=== PATIENT | male | born 1960 | race African-American/Black ===

== ENCOUNTER 2022-10-01 10:01 | Inpatient (IN) | payer OTHER ==
[2022-10-01 11:13] VITALS: BMI 19.8
[2022-10-01] MEDS ORDERED: P-EPHED 60MG/TRIPROLIDI 2.5MG TABLET PO PRN (11:48)
[2022-10-01] MEDS ORDERED: guaiFENesin 600 MG TABLET.ER (FP) PO PRN (11:48)
[2022-10-01] MEDS ORDERED: MAG HYDROX/AL HYDROX/SIMETH 30 ML UNIT-DOSE CUP PO PRN (11:48)
[2022-10-01] MEDS ORDERED: AMMONIUM LACTATE 12% LOTION 225 GM BOTTLE TP PRN (11:48)
[2022-10-01] MEDS ORDERED: MAGNESIUM HYDROX 2400MG/30ML ORAL SUSPENSION 30 ML CUP PO PRN (11:48)
[2022-10-01] MEDS ORDERED: BENZONATATE 200 MG CAPSULE PO PRN (11:48)
[2022-10-01] MEDS ORDERED: POLYETHYLENE GLYCOL (HEALTHYLAX) 3350 17 GM PACKET PO PRN (11:48)
[2022-10-01] MEDS ORDERED: COLLOIDAL OATMEAL 1 BAR EACH TP PRN (11:48)
[2022-10-01] MEDS ORDERED: LOPERAMIDE HCL 2 MG CAPSULE PO PRN (11:48)
[2022-10-01] MEDS ORDERED: NICOTINE 10 MG CARTRIDGE (INHALER) IH PRN (11:48)
[2022-10-01] MEDS ORDERED: BENZOCAINE/MENTHOL (CHLORASEPTIC ) LOZENGE MM PRN (11:48)
[2022-10-01] MEDS ORDERED: TUBERCULIN PPD 5 TU/0.1ML SYRINGE (IN PATIENT USE ONLY) ID ONE (13:15)
[2022-10-01] MEDS ORDERED: CLOPIDOGREL BISULFATE 75 MG TABLET (FP) PO SCH (14:00)
[2022-10-01] MEDS: ASPIRIN 81 MG CHEWABLE TABLETS PO SCH (14:33)
[2022-10-01] MEDS: amLODIPine BESYLATE 10 MG TABLET (FP) PO SCH (14:33)
[2022-10-01] MEDS: BACITRACIN 0.9 GM PACKET TP SCH ×2 (14:33→21:51)
[2022-10-01] MEDS: NICOTINE 14 MG/24 HOURS TOPICAL PATCH TD SCH (14:41)
[2022-10-01] MEDS: CLOPIDOGREL BISULFATE 75 MG TABLET (FP) PO SCH (16:00)
[2022-10-01 17:08] LABS: CHLORIDE 100 mmol/L (98-107); HEMATOCRIT 50.8 % (35.4-49); HEMOGLOBIN 16.4 GM/dL (11.7-16.9); MCH 25.7 pg (25.7-33.7); MCHC 32.2 g/dl (32.0-35.9); MEAN CELL VOLUME 79.9 fl (80-96); MEAN PLT VOLUME 9.8 fl (7.5-11.1); PLATELET COUNT 418 10^3/uL (134-434); POTASSIUM 5.2 mmol/L (3.5-5.1); RBC 6.37 M/mm3 (4.00-5.60); RDW 14.7 % (11.9-15.9); SODIUM 138 mmol/L (136-145); WHITE BLOOD COUNT 7.8 K/mm3 (4.0-10.0)
[2022-10-01 17:11] LABS: ALBUMIN 3.7 g/dl (3.4-5.0); CALCIUM 9.9 mg/dL (8.5-10.1)
[2022-10-01 17:12] LABS: ANION GAP 9 MMOL/L (8-16); BLOOD UREA NITROGEN 24.3 mg/dL (7-18); CO2 29 mmol/L (21-32)
[2022-10-01 17:15] LABS: CREATININE 1.3 mg/dL (0.55-1.3); SGOT/AST 13 U/L (15-37); SGPT/ALT 17 U/L (13-61)
[2022-10-01 17:16] LABS: BILIRUBIN,TOTAL 0.4 mg/dL (0.2-1); TOT PROT 7.5 g/dl (6.4-8.2)
[2022-10-01 17:17] LABS: ALK PHOS 99 U/L (45-117)
[2022-10-01 17:20] LABS: GLUCOSE,RANDOM 535 mg/dL (74-106)
[2022-10-01] MEDS: metFORMIN HCL 500 MG TABLET (FP) PO SCH (17:41)
[2022-10-01] MEDS: INSULIN SLIDING SCALE (NOVOLOG) 1 VIAL SQ SCH ×2 (17:41→21:51)
[2022-10-01] MEDS: GLIMEPIRIDE 2 MG TABLET PO SCH (17:42)
[2022-10-01 18:37] LABS: SYPHILIS W/ RPR CONF REACTIVE (NONREACTIVE)
[2022-10-01] MEDS: THIAMINE HCL 100 MG TABLET (FP) PO SCH (21:51)
[2022-10-01] MEDS: MELATONIN 5 MG TABLETS PO SCH (21:51)
[2022-10-02] MEDS: GLIMEPIRIDE 2 MG TABLET PO SCH ×2 (06:29→22:03)
[2022-10-02] MEDS: INSULIN SLIDING SCALE (NOVOLOG) 1 VIAL SQ SCH ×4 (06:29→22:06)
[2022-10-02] MEDS: metFORMIN HCL 500 MG TABLET (FP) PO SCH ×2 (06:29→16:42)
[2022-10-02] MEDS ORDERED: INSULIN (NOVOLOG) ASPART 100 UNITS/ML 10ML VIAL ONE ×4 (06:30→22:09)
[2022-10-02] MEDS: ASPIRIN 81 MG CHEWABLE TABLETS PO SCH (09:27)
[2022-10-02] MEDS: BACITRACIN 0.9 GM PACKET TP SCH ×2 (09:27→22:03)
[2022-10-02] MEDS: CLOPIDOGREL BISULFATE 75 MG TABLET (FP) PO SCH (09:27)
[2022-10-02] MEDS: amLODIPine BESYLATE 10 MG TABLET (FP) PO SCH (09:27)
[2022-10-02] MEDS: NICOTINE 14 MG/24 HOURS TOPICAL PATCH TD SCH (09:27)
[2022-10-02] MEDS: PRENATAL VITAMINS W/ FOLIC ACID TABLET (FP) PO SCH (09:28)
[2022-10-02 12:40] LABS: HIV INTERPRETATION NEGATIVE (NEGATIVE)
[2022-10-02 18:23] LABS: PH,URINE 5.5 (5.0-8.0); URINE APPEARANCE CLEAR; URINE BILIRUBIN NEGATIVE (NEGATIVE); URINE COLOR YELLOW; URINE GLUCOSE (UA) 3+ (NEGATIVE); URINE KETONE NEGATIVE (NEGATIVE); URINE LEUK ESTERASE NEGATIVE (NEGATIVE); URINE NITRITE NEGATIVE (NEGATIVE); URINE PROTEIN NEGATIVE (NEGATIVE); URINE UROBILINOGEN 0.2 mg/dL (0.2-1.0)
[2022-10-02] MEDS: MELATONIN 5 MG TABLETS PO SCH (22:03)
[2022-10-02] MEDS: THIAMINE HCL 100 MG TABLET (FP) PO SCH (22:03)
[2022-10-03] MEDS: GLIMEPIRIDE 2 MG TABLET PO SCH ×2 (06:31→16:50)
[2022-10-03] MEDS: metFORMIN HCL 500 MG TABLET (FP) PO SCH ×2 (06:31→16:50)
[2022-10-03] MEDS: INSULIN SLIDING SCALE (NOVOLOG) 1 VIAL SQ SCH ×4 (08:29→21:52)
[2022-10-03] MEDS ORDERED: INSULIN (NOVOLOG) ASPART 100 UNITS/ML 10ML VIAL ONE ×2 (08:38→11:49)
[2022-10-03] MEDS: CLOPIDOGREL BISULFATE 75 MG TABLET (FP) PO SCH (09:32)
[2022-10-03] MEDS: ASPIRIN 81 MG CHEWABLE TABLETS PO SCH (09:32)
[2022-10-03] MEDS: NICOTINE 14 MG/24 HOURS TOPICAL PATCH TD SCH (09:32)
[2022-10-03] MEDS: BACITRACIN 0.9 GM PACKET TP SCH ×2 (09:32→21:51)
[2022-10-03] MEDS: PRENATAL VITAMINS W/ FOLIC ACID TABLET (FP) PO SCH (09:33)
[2022-10-03] MEDS: amLODIPine BESYLATE 10 MG TABLET (FP) PO SCH (09:33)
[2022-10-03] MEDS: THIAMINE HCL 100 MG TABLET (FP) PO SCH (21:51)
[2022-10-03] MEDS: MELATONIN 5 MG TABLETS PO SCH (21:52)
[2022-10-04] MEDS: metFORMIN HCL 500 MG TABLET (FP) PO SCH ×2 (06:35→16:46)
[2022-10-04] MEDS: GLIMEPIRIDE 2 MG TABLET PO SCH ×2 (06:35→16:47)
[2022-10-04] MEDS: INSULIN SLIDING SCALE (NOVOLOG) 1 VIAL SQ SCH ×4 (07:48→22:04)
[2022-10-04] MEDS ORDERED: INSULIN (NOVOLOG) ASPART 100 UNITS/ML 10ML VIAL ONE ×3 (07:52→16:31)
[2022-10-04] MEDS: NICOTINE 14 MG/24 HOURS TOPICAL PATCH TD SCH (09:46)
[2022-10-04] MEDS: CLOPIDOGREL BISULFATE 75 MG TABLET (FP) PO SCH (09:46)
[2022-10-04] MEDS: PRENATAL VITAMINS W/ FOLIC ACID TABLET (FP) PO SCH (09:46)
[2022-10-04] MEDS: BACITRACIN 0.9 GM PACKET TP SCH ×2 (09:46→22:03)
[2022-10-04] MEDS: ASPIRIN 81 MG CHEWABLE TABLETS PO SCH (09:46)
[2022-10-04] MEDS: amLODIPine BESYLATE 10 MG TABLET (FP) PO SCH (09:46)
[2022-10-04] MEDS: MELATONIN 5 MG TABLETS PO SCH (21:47)
[2022-10-04] MEDS: THIAMINE HCL 100 MG TABLET (FP) PO SCH (22:04)
[2022-10-05] MEDS: INSULIN SLIDING SCALE (NOVOLOG) 1 VIAL SQ SCH ×4 (06:30→21:39)
[2022-10-05] MEDS ORDERED: INSULIN (NOVOLOG) ASPART 100 UNITS/ML 10ML VIAL ONE ×3 (06:31→16:29)
[2022-10-05] MEDS: metFORMIN HCL 500 MG TABLET (FP) PO SCH ×2 (06:32→16:53)
[2022-10-05] MEDS: GLIMEPIRIDE 2 MG TABLET PO SCH ×2 (06:32→16:53)
[2022-10-05] MEDS: PRENATAL VITAMINS W/ FOLIC ACID TABLET (FP) PO SCH (09:47)
[2022-10-05] MEDS: BACITRACIN 0.9 GM PACKET TP SCH ×2 (09:47→21:38)
[2022-10-05] MEDS: CLOPIDOGREL BISULFATE 75 MG TABLET (FP) PO SCH (09:47)
[2022-10-05] MEDS: amLODIPine BESYLATE 10 MG TABLET (FP) PO SCH (09:47)
[2022-10-05] MEDS: ASPIRIN 81 MG CHEWABLE TABLETS PO SCH (09:47)
[2022-10-05] MEDS: NICOTINE 14 MG/24 HOURS TOPICAL PATCH TD SCH (09:48)
[2022-10-05] MEDS: THIAMINE HCL 100 MG TABLET (FP) PO SCH (21:38)
[2022-10-05] MEDS: MELATONIN 5 MG TABLETS PO SCH (21:38)
[2022-10-06] MEDS: INSULIN SLIDING SCALE (NOVOLOG) 1 VIAL SQ SCH ×4 (06:36→21:23)
[2022-10-06] MEDS: metFORMIN HCL 500 MG TABLET (FP) PO SCH ×2 (06:37→16:39)
[2022-10-06] MEDS: GLIMEPIRIDE 2 MG TABLET PO SCH ×2 (06:54→16:39)
[2022-10-06] MEDS ORDERED: INSULIN (NOVOLOG) ASPART 100 UNITS/ML 10ML VIAL ONE ×4 (07:01→21:40)
[2022-10-06] MEDS: BACITRACIN 0.9 GM PACKET TP SCH ×2 (09:49→21:20)
[2022-10-06] MEDS: amLODIPine BESYLATE 10 MG TABLET (FP) PO SCH (09:49)
[2022-10-06] MEDS: NICOTINE 14 MG/24 HOURS TOPICAL PATCH TD SCH (09:49)
[2022-10-06] MEDS: ASPIRIN 81 MG CHEWABLE TABLETS PO SCH (09:49)
[2022-10-06] MEDS: CLOPIDOGREL BISULFATE 75 MG TABLET (FP) PO SCH (09:49)
[2022-10-06] MEDS: PRENATAL VITAMINS W/ FOLIC ACID TABLET (FP) PO SCH (09:49)
[2022-10-06] MEDS: BACLOFEN 10 MG TABLET (FP) PO PRN (16:41)
[2022-10-06] MEDS: MELATONIN 5 MG TABLETS PO SCH (21:20)
[2022-10-06] MEDS: THIAMINE HCL 100 MG TABLET (FP) PO SCH (21:20)
[2022-10-07] MEDS: INSULIN SLIDING SCALE (NOVOLOG) 1 VIAL SQ SCH ×4 (06:27→21:19)
[2022-10-07] MEDS: GLIMEPIRIDE 2 MG TABLET PO SCH ×2 (06:27→16:48)
[2022-10-07] MEDS: metFORMIN HCL 500 MG TABLET (FP) PO SCH ×2 (06:27→16:47)
[2022-10-07] MEDS ORDERED: INSULIN (NOVOLOG) ASPART 100 UNITS/ML 10ML VIAL ONE ×2 (06:32→11:57)
[2022-10-07] MEDS: ASPIRIN 81 MG CHEWABLE TABLETS PO SCH (09:49)
[2022-10-07] MEDS: BACITRACIN 0.9 GM PACKET TP SCH ×2 (09:50→21:17)
[2022-10-07] MEDS: amLODIPine BESYLATE 10 MG TABLET (FP) PO SCH (09:50)
[2022-10-07] MEDS: PRENATAL VITAMINS W/ FOLIC ACID TABLET (FP) PO SCH (09:50)
[2022-10-07] MEDS: NICOTINE 14 MG/24 HOURS TOPICAL PATCH TD SCH (09:50)
[2022-10-07] MEDS: CLOPIDOGREL BISULFATE 75 MG TABLET (FP) PO SCH (09:50)
[2022-10-07] MEDS: BACLOFEN 10 MG TABLET (FP) PO PRN ×2 (09:52→21:17)
[2022-10-07] MEDS: THIAMINE HCL 100 MG TABLET (FP) PO SCH (21:17)
[2022-10-07] MEDS: MELATONIN 5 MG TABLETS PO SCH (21:17)
[2022-10-08] MEDS: GLIMEPIRIDE 2 MG TABLET PO SCH ×2 (06:40→16:52)
[2022-10-08] MEDS: INSULIN SLIDING SCALE (NOVOLOG) 1 VIAL SQ SCH ×4 (06:40→21:35)
[2022-10-08] MEDS: metFORMIN HCL 500 MG TABLET (FP) PO SCH ×2 (06:40→16:52)
[2022-10-08] MEDS ORDERED: INSULIN (NOVOLOG) ASPART 100 UNITS/ML 10ML VIAL ONE ×4 (06:54→21:47)
[2022-10-08] MEDS: BACITRACIN 0.9 GM PACKET TP SCH ×2 (10:10→21:32)
[2022-10-08] MEDS: CLOPIDOGREL BISULFATE 75 MG TABLET (FP) PO SCH (10:10)
[2022-10-08] MEDS: amLODIPine BESYLATE 10 MG TABLET (FP) PO SCH (10:10)
[2022-10-08] MEDS: PRENATAL VITAMINS W/ FOLIC ACID TABLET (FP) PO SCH (10:10)
[2022-10-08] MEDS: NICOTINE 14 MG/24 HOURS TOPICAL PATCH TD SCH (10:10)
[2022-10-08] MEDS: ASPIRIN 81 MG CHEWABLE TABLETS PO SCH (10:10)
[2022-10-08] MEDS: BACLOFEN 10 MG TABLET (FP) PO PRN (21:32)
[2022-10-08] MEDS: MELATONIN 5 MG TABLETS PO SCH (21:32)
[2022-10-08] MEDS: THIAMINE HCL 100 MG TABLET (FP) PO SCH (21:32)
[2022-10-09] MEDS: GLIMEPIRIDE 2 MG TABLET PO SCH ×2 (06:28→16:29)
[2022-10-09] MEDS: metFORMIN HCL 500 MG TABLET (FP) PO SCH (06:28)
[2022-10-09] MEDS: INSULIN SLIDING SCALE (NOVOLOG) 1 VIAL SQ SCH ×4 (07:36→21:30)
[2022-10-09] MEDS ORDERED: INSULIN (NOVOLOG) ASPART 100 UNITS/ML 10ML VIAL ONE ×2 (07:45→19:24)
[2022-10-09] MEDS: NICOTINE 14 MG/24 HOURS TOPICAL PATCH TD SCH (09:54)
[2022-10-09] MEDS: ASPIRIN 81 MG CHEWABLE TABLETS PO SCH (09:54)
[2022-10-09] MEDS: CLOPIDOGREL BISULFATE 75 MG TABLET (FP) PO SCH (09:54)
[2022-10-09] MEDS: BACITRACIN 0.9 GM PACKET TP SCH ×2 (09:54→21:30)
[2022-10-09] MEDS: amLODIPine BESYLATE 10 MG TABLET (FP) PO SCH (09:54)
[2022-10-09] MEDS: PRENATAL VITAMINS W/ FOLIC ACID TABLET (FP) PO SCH (09:54)
[2022-10-09] MEDS: BACLOFEN 10 MG TABLET (FP) PO PRN ×2 (09:56→21:30)
[2022-10-09] MEDS: MELATONIN 5 MG TABLETS PO SCH (21:30)
[2022-10-09] MEDS: THIAMINE HCL 100 MG TABLET (FP) PO SCH (21:30)
[2022-10-10] MEDS: INSULIN SLIDING SCALE (NOVOLOG) 1 VIAL SQ SCH ×4 (06:33→21:24)
[2022-10-10] MEDS ORDERED: INSULIN (NOVOLOG) ASPART 100 UNITS/ML 10ML VIAL ONE ×3 (06:34→23:56)
[2022-10-10] MEDS: GLIMEPIRIDE 2 MG TABLET PO SCH ×2 (06:41→16:51)
[2022-10-10] MEDS: ASPIRIN 81 MG CHEWABLE TABLETS PO SCH (09:32)
[2022-10-10] MEDS: BACITRACIN 0.9 GM PACKET TP SCH ×2 (09:32→21:21)
[2022-10-10] MEDS: NICOTINE 14 MG/24 HOURS TOPICAL PATCH TD SCH (09:32)
[2022-10-10] MEDS: PRENATAL VITAMINS W/ FOLIC ACID TABLET (FP) PO SCH (09:33)
[2022-10-10] MEDS: CLOPIDOGREL BISULFATE 75 MG TABLET (FP) PO SCH (09:33)
[2022-10-10] MEDS: amLODIPine BESYLATE 10 MG TABLET (FP) PO SCH (09:33)
[2022-10-10] MEDS: BACLOFEN 10 MG TABLET (FP) PO PRN (21:21)
[2022-10-10] MEDS: MELATONIN 5 MG TABLETS PO SCH (21:21)
[2022-10-10] MEDS: THIAMINE HCL 100 MG TABLET (FP) PO SCH (21:21)
[2022-10-11] MEDS: INSULIN SLIDING SCALE (NOVOLOG) 1 VIAL SQ SCH ×4 (06:19→21:33)
[2022-10-11] MEDS ORDERED: INSULIN (NOVOLOG) ASPART 100 UNITS/ML 10ML VIAL ONE ×3 (06:20→16:25)
[2022-10-11] MEDS: GLIMEPIRIDE 2 MG TABLET PO SCH ×2 (06:20→16:29)
[2022-10-11] MEDS: ASPIRIN 81 MG CHEWABLE TABLETS PO SCH (09:48)
[2022-10-11] MEDS: CLOPIDOGREL BISULFATE 75 MG TABLET (FP) PO SCH (09:48)
[2022-10-11] MEDS: PRENATAL VITAMINS W/ FOLIC ACID TABLET (FP) PO SCH (09:48)
[2022-10-11] MEDS: NICOTINE 14 MG/24 HOURS TOPICAL PATCH TD SCH (09:48)
[2022-10-11] MEDS: BACITRACIN 0.9 GM PACKET TP SCH ×2 (09:48→21:30)
[2022-10-11] MEDS: amLODIPine BESYLATE 10 MG TABLET (FP) PO SCH (09:48)
[2022-10-11] MEDS: THIAMINE HCL 100 MG TABLET (FP) PO SCH (21:30)
[2022-10-11] MEDS: MELATONIN 5 MG TABLETS PO SCH (21:30)
[2022-10-11] MEDS: BACLOFEN 10 MG TABLET (FP) PO PRN (21:30)
[2022-10-12] MEDS: GLIMEPIRIDE 2 MG TABLET PO SCH ×2 (06:39→16:56)
[2022-10-12] MEDS: ACETAMINOPHEN 325 MG TABLET (FP) PO PRN (06:46)
[2022-10-12] MEDS: INSULIN SLIDING SCALE (NOVOLOG) 1 VIAL SQ SCH ×4 (08:11→21:22)
[2022-10-12 10:20] LABS: POTASSIUM 4.6 mmol/L (3.5-5.1)
[2022-10-12] MEDS: BACITRACIN 0.9 GM PACKET TP SCH ×2 (10:20→21:22)
[2022-10-12] MEDS: CLOPIDOGREL BISULFATE 75 MG TABLET (FP) PO SCH (10:20)
[2022-10-12] MEDS: amLODIPine BESYLATE 10 MG TABLET (FP) PO SCH (10:20)
[2022-10-12] MEDS: NICOTINE 14 MG/24 HOURS TOPICAL PATCH TD SCH (10:20)
[2022-10-12] MEDS: ASPIRIN 81 MG CHEWABLE TABLETS PO SCH (10:21)
[2022-10-12] MEDS: PRENATAL VITAMINS W/ FOLIC ACID TABLET (FP) PO SCH (10:21)
[2022-10-12 10:23] LABS: ALBUMIN 3.5 g/dl (3.4-5.0); BLOOD UREA NITROGEN 17.9 mg/dL (7-18); CALCIUM 9.7 mg/dL (8.5-10.1)
[2022-10-12 10:27] LABS: BILIRUBIN,TOTAL 0.3 mg/dL (0.2-1); TOT PROT 6.8 g/dl (6.4-8.2)
[2022-10-12] MEDS ORDERED: INSULIN (NOVOLOG) ASPART 100 UNITS/ML 10ML VIAL ONE ×2 (11:55→16:48)
[2022-10-12] MEDS: THIAMINE HCL 100 MG TABLET (FP) PO SCH (21:22)
[2022-10-12] MEDS: MELATONIN 5 MG TABLETS PO SCH (21:22)
[2022-10-12] MEDS: BACLOFEN 10 MG TABLET (FP) PO PRN (21:22)
[2022-10-13] MEDS: INSULIN SLIDING SCALE (NOVOLOG) 1 VIAL SQ SCH ×4 (06:21→21:51)
[2022-10-13] MEDS: GLIMEPIRIDE 2 MG TABLET PO SCH ×2 (06:21→16:55)
[2022-10-13] MEDS ORDERED: INSULIN (NOVOLOG) ASPART 100 UNITS/ML 10ML VIAL ONE ×3 (06:49→16:39)
[2022-10-13] MEDS: PRENATAL VITAMINS W/ FOLIC ACID TABLET (FP) PO SCH (09:55)
[2022-10-13] MEDS: NICOTINE 14 MG/24 HOURS TOPICAL PATCH TD SCH (09:55)
[2022-10-13] MEDS: BACITRACIN 0.9 GM PACKET TP SCH ×2 (09:55→21:52)
[2022-10-13] MEDS: ASPIRIN 81 MG CHEWABLE TABLETS PO SCH (09:55)
[2022-10-13] MEDS: amLODIPine BESYLATE 10 MG TABLET (FP) PO SCH (09:56)
[2022-10-13] MEDS: CLOPIDOGREL BISULFATE 75 MG TABLET (FP) PO SCH (09:56)
[2022-10-13 11:02] LABS: BASO % 0.8 % (0-2.0); EOS % 3.8 % (0-4.5); HEMATOCRIT 42.6 % (35.4-49); HEMOGLOBIN 14.1 GM/dL (11.7-16.9); MCH 25.6 pg (25.7-33.7); MCHC 33.2 g/dl (32.0-35.9); MEAN CELL VOLUME 77.2 fl (80-96); MEAN PLT VOLUME 8.7 fl (7.5-11.1); MONO % 7.8 % (3.8-10.2); NEUT % 61.6 % (42.8-82.8); PLATELET COUNT 657 10^3/uL (134-434); RBC 5.51 M/mm3 (4.00-5.60); RDW 14.8 % (11.9-15.9); WHITE BLOOD COUNT 7.4 K/mm3 (4.0-10.0)
[2022-10-13] MEDS: THIAMINE HCL 100 MG TABLET (FP) PO SCH (21:51)
[2022-10-13] MEDS: MELATONIN 5 MG TABLETS PO SCH (21:52)
[2022-10-13] MEDS: BACLOFEN 10 MG TABLET (FP) PO PRN (21:52)
[2022-10-14] MEDS: INSULIN SLIDING SCALE (NOVOLOG) 1 VIAL SQ SCH ×4 (06:24→21:28)
[2022-10-14] MEDS ORDERED: INSULIN (NOVOLOG) ASPART 100 UNITS/ML 10ML VIAL ONE ×4 (06:25→21:38)
[2022-10-14] MEDS: GLIMEPIRIDE 2 MG TABLET PO SCH ×2 (06:30→16:33)
[2022-10-14] MEDS: ASPIRIN 81 MG CHEWABLE TABLETS PO SCH (10:08)
[2022-10-14] MEDS: amLODIPine BESYLATE 10 MG TABLET (FP) PO SCH (10:08)
[2022-10-14] MEDS: BACITRACIN 0.9 GM PACKET TP SCH ×2 (10:08→21:26)
[2022-10-14] MEDS: NICOTINE 14 MG/24 HOURS TOPICAL PATCH TD SCH (10:09)
[2022-10-14] MEDS: CLOPIDOGREL BISULFATE 75 MG TABLET (FP) PO SCH (10:09)
[2022-10-14] MEDS: PRENATAL VITAMINS W/ FOLIC ACID TABLET (FP) PO SCH (10:09)
[2022-10-14] MEDS: ACETAMINOPHEN 325 MG TABLET (FP) PO PRN (19:50)
[2022-10-14] MEDS: THIAMINE HCL 100 MG TABLET (FP) PO SCH (21:26)
[2022-10-14] MEDS: MELATONIN 5 MG TABLETS PO SCH (21:26)
[2022-10-14] MEDS: BACLOFEN 10 MG TABLET (FP) PO PRN (21:26)
[2022-10-15] MEDS: INSULIN SLIDING SCALE (NOVOLOG) 1 VIAL SQ SCH ×4 (06:34→21:14)
[2022-10-15] MEDS: GLIMEPIRIDE 2 MG TABLET PO SCH ×2 (06:35→16:30)
[2022-10-15] MEDS ORDERED: INSULIN (NOVOLOG) ASPART 100 UNITS/ML 10ML VIAL ONE ×4 (06:41→21:38)
[2022-10-15] MEDS: PRENATAL VITAMINS W/ FOLIC ACID TABLET (FP) PO SCH (10:14)
[2022-10-15] MEDS: NICOTINE 14 MG/24 HOURS TOPICAL PATCH TD SCH (10:15)
[2022-10-15] MEDS: BACITRACIN 0.9 GM PACKET TP SCH ×2 (10:15→21:12)
[2022-10-15] MEDS: amLODIPine BESYLATE 10 MG TABLET (FP) PO SCH (10:15)
[2022-10-15] MEDS: ASPIRIN 81 MG CHEWABLE TABLETS PO SCH (10:15)
[2022-10-15] MEDS: CLOPIDOGREL BISULFATE 75 MG TABLET (FP) PO SCH (10:15)
[2022-10-15] MEDS: THIAMINE HCL 100 MG TABLET (FP) PO SCH (21:12)
[2022-10-15] MEDS: MELATONIN 5 MG TABLETS PO SCH (21:12)
[2022-10-15] MEDS: BACLOFEN 10 MG TABLET (FP) PO PRN (21:12)
[2022-10-16] MEDS: GLIMEPIRIDE 2 MG TABLET PO SCH ×2 (06:36→16:26)
[2022-10-16] MEDS: INSULIN SLIDING SCALE (NOVOLOG) 1 VIAL SQ SCH ×4 (06:36→21:10)
[2022-10-16] MEDS ORDERED: INSULIN (NOVOLOG) ASPART 100 UNITS/ML 10ML VIAL ONE ×3 (06:39→21:31)
[2022-10-16] MEDS: ASPIRIN 81 MG CHEWABLE TABLETS PO SCH (09:47)
[2022-10-16] MEDS: NICOTINE 14 MG/24 HOURS TOPICAL PATCH TD SCH (09:47)
[2022-10-16] MEDS: BACITRACIN 0.9 GM PACKET TP SCH ×2 (09:47→21:08)
[2022-10-16] MEDS: amLODIPine BESYLATE 10 MG TABLET (FP) PO SCH (09:48)
[2022-10-16] MEDS: PRENATAL VITAMINS W/ FOLIC ACID TABLET (FP) PO SCH (09:48)
[2022-10-16] MEDS: CLOPIDOGREL BISULFATE 75 MG TABLET (FP) PO SCH (09:48)
[2022-10-16] MEDS: NICOTINE POLACRILEX 2 MG GUM BUC PRN (09:49)
[2022-10-16] MEDS: BACLOFEN 10 MG TABLET (FP) PO PRN (21:08)
[2022-10-16] MEDS: MELATONIN 5 MG TABLETS PO SCH (21:08)
[2022-10-16] MEDS: THIAMINE HCL 100 MG TABLET (FP) PO SCH (21:08)
[2022-10-17] MEDS: GLIMEPIRIDE 2 MG TABLET PO SCH ×2 (06:23→16:53)
[2022-10-17] MEDS: INSULIN SLIDING SCALE (NOVOLOG) 1 VIAL SQ SCH ×4 (07:59→21:20)
[2022-10-17] MEDS ORDERED: INSULIN (NOVOLOG) ASPART 100 UNITS/ML 10ML VIAL ONE ×4 (08:01→16:40)
[2022-10-17] MEDS: NICOTINE 14 MG/24 HOURS TOPICAL PATCH TD SCH (09:39)
[2022-10-17] MEDS: PRENATAL VITAMINS W/ FOLIC ACID TABLET (FP) PO SCH (09:39)
[2022-10-17] MEDS: amLODIPine BESYLATE 10 MG TABLET (FP) PO SCH (09:39)
[2022-10-17] MEDS: BACITRACIN 0.9 GM PACKET TP SCH ×2 (09:39→21:21)
[2022-10-17] MEDS: CLOPIDOGREL BISULFATE 75 MG TABLET (FP) PO SCH (09:39)
[2022-10-17] MEDS: ASPIRIN 81 MG CHEWABLE TABLETS PO SCH (09:39)
[2022-10-17] MEDS: NICOTINE POLACRILEX 2 MG GUM BUC PRN (09:40)
[2022-10-17] MEDS: THIAMINE HCL 100 MG TABLET (FP) PO SCH (21:21)
[2022-10-17] MEDS: MELATONIN 5 MG TABLETS PO SCH (21:21)
[2022-10-17] MEDS: BACLOFEN 10 MG TABLET (FP) PO PRN (21:21)
[2022-10-18] MEDS: GLIMEPIRIDE 2 MG TABLET PO SCH ×2 (06:41→16:38)
[2022-10-18] MEDS: INSULIN SLIDING SCALE (NOVOLOG) 1 VIAL SQ SCH ×4 (07:32→21:17)
[2022-10-18] MEDS ORDERED: INSULIN (NOVOLOG) ASPART 100 UNITS/ML 10ML VIAL ONE ×3 (07:34→16:27)
[2022-10-18] MEDS: amLODIPine BESYLATE 10 MG TABLET (FP) PO SCH (09:52)
[2022-10-18] MEDS: CLOPIDOGREL BISULFATE 75 MG TABLET (FP) PO SCH (09:52)
[2022-10-18] MEDS: ASPIRIN 81 MG CHEWABLE TABLETS PO SCH (09:52)
[2022-10-18] MEDS: PRENATAL VITAMINS W/ FOLIC ACID TABLET (FP) PO SCH (09:53)
[2022-10-18] MEDS: NICOTINE 14 MG/24 HOURS TOPICAL PATCH TD SCH (09:53)
[2022-10-18] MEDS: BACITRACIN 0.9 GM PACKET TP SCH ×2 (09:53→21:16)
[2022-10-18] MEDS: MELATONIN 5 MG TABLETS PO SCH (21:16)
[2022-10-18] MEDS: THIAMINE HCL 100 MG TABLET (FP) PO SCH (21:17)
[2022-10-19] MEDS: INSULIN SLIDING SCALE (NOVOLOG) 1 VIAL SQ SCH ×4 (06:33→21:38)
[2022-10-19] MEDS: GLIMEPIRIDE 2 MG TABLET PO SCH ×2 (06:35→16:54)
[2022-10-19] MEDS ORDERED: INSULIN (NOVOLOG) ASPART 100 UNITS/ML 10ML VIAL ONE ×3 (06:38→16:36)
[2022-10-19] MEDS ORDERED: NICOTINE 14 MG/24 HOURS TOPICAL PATCH TD PRN (08:14)
[2022-10-19] MEDS: amLODIPine BESYLATE 10 MG TABLET (FP) PO SCH (09:48)
[2022-10-19] MEDS: BACITRACIN 0.9 GM PACKET TP SCH ×2 (09:48→21:36)
[2022-10-19] MEDS: PRENATAL VITAMINS W/ FOLIC ACID TABLET (FP) PO SCH (09:48)
[2022-10-19] MEDS: CLOPIDOGREL BISULFATE 75 MG TABLET (FP) PO SCH (09:48)
[2022-10-19] MEDS: ASPIRIN 81 MG CHEWABLE TABLETS PO SCH (09:48)
[2022-10-19] MEDS: BACLOFEN 10 MG TABLET (FP) PO PRN ×2 (14:43→21:36)
[2022-10-19] MEDS: MELATONIN 5 MG TABLETS PO SCH (21:36)
[2022-10-19] MEDS: THIAMINE HCL 100 MG TABLET (FP) PO SCH (21:36)
[2022-10-20] MEDS ORDERED: INSULIN (NOVOLOG) ASPART 100 UNITS/ML 10ML VIAL ONE ×3 (06:25→16:29)
[2022-10-20] MEDS: INSULIN SLIDING SCALE (NOVOLOG) 1 VIAL SQ SCH ×4 (06:25→21:22)
[2022-10-20] MEDS: GLIMEPIRIDE 2 MG TABLET PO SCH ×2 (06:26→21:15)
[2022-10-20] MEDS: CLOPIDOGREL BISULFATE 75 MG TABLET (FP) PO SCH (09:51)
[2022-10-20] MEDS: BACITRACIN 0.9 GM PACKET TP SCH ×2 (09:51→21:22)
[2022-10-20] MEDS: amLODIPine BESYLATE 10 MG TABLET (FP) PO SCH (09:51)
[2022-10-20] MEDS: ASPIRIN 81 MG CHEWABLE TABLETS PO SCH (09:51)
[2022-10-20] MEDS: PRENATAL VITAMINS W/ FOLIC ACID TABLET (FP) PO SCH (09:52)
[2022-10-20] MEDS: THIAMINE HCL 100 MG TABLET (FP) PO SCH (21:21)
[2022-10-20] MEDS: MELATONIN 5 MG TABLETS PO SCH (21:23)
[2022-10-21] MEDS: GLIMEPIRIDE 2 MG TABLET PO SCH ×2 (06:26→16:52)
[2022-10-21] MEDS: INSULIN SLIDING SCALE (NOVOLOG) 1 VIAL SQ SCH ×4 (06:27→21:10)
[2022-10-21] MEDS ORDERED: INSULIN (NOVOLOG) ASPART 100 UNITS/ML 10ML VIAL ONE ×3 (06:28→22:44)
[2022-10-21] MEDS: ASPIRIN 81 MG CHEWABLE TABLETS PO SCH (10:05)
[2022-10-21] MEDS: amLODIPine BESYLATE 10 MG TABLET (FP) PO SCH (10:06)
[2022-10-21] MEDS: PRENATAL VITAMINS W/ FOLIC ACID TABLET (FP) PO SCH (10:06)
[2022-10-21] MEDS: CLOPIDOGREL BISULFATE 75 MG TABLET (FP) PO SCH (10:06)
[2022-10-21] MEDS: BACITRACIN 0.9 GM PACKET TP SCH ×2 (10:06→21:11)
[2022-10-21] MEDS: MELATONIN 5 MG TABLETS PO SCH (21:08)
[2022-10-21] MEDS: THIAMINE HCL 100 MG TABLET (FP) PO SCH (21:08)
[2022-10-21] MEDS: BACLOFEN 10 MG TABLET (FP) PO PRN (21:11)
[2022-10-22] MEDS: GLIMEPIRIDE 2 MG TABLET PO SCH ×2 (06:23→16:35)
[2022-10-22] MEDS: INSULIN SLIDING SCALE (NOVOLOG) 1 VIAL SQ SCH ×4 (06:24→21:33)
[2022-10-22] MEDS ORDERED: INSULIN (NOVOLOG) ASPART 100 UNITS/ML 10ML VIAL ONE ×3 (06:33→16:29)
[2022-10-22] MEDS: BACITRACIN 0.9 GM PACKET TP SCH ×2 (10:09→21:34)
[2022-10-22] MEDS: ASPIRIN 81 MG CHEWABLE TABLETS PO SCH (10:09)
[2022-10-22] MEDS: CLOPIDOGREL BISULFATE 75 MG TABLET (FP) PO SCH (10:10)
[2022-10-22] MEDS: amLODIPine BESYLATE 10 MG TABLET (FP) PO SCH (10:10)
[2022-10-22] MEDS: PRENATAL VITAMINS W/ FOLIC ACID TABLET (FP) PO SCH (10:10)
[2022-10-22] MEDS: BACLOFEN 10 MG TABLET (FP) PO PRN (21:34)
[2022-10-22] MEDS: THIAMINE HCL 100 MG TABLET (FP) PO SCH (21:34)
[2022-10-22] MEDS: MELATONIN 5 MG TABLETS PO SCH (21:34)
[2022-10-23] MEDS: GLIMEPIRIDE 2 MG TABLET PO SCH ×2 (06:09→16:55)
[2022-10-23] MEDS: INSULIN SLIDING SCALE (NOVOLOG) 1 VIAL SQ SCH ×4 (07:42→21:20)
[2022-10-23] MEDS ORDERED: INSULIN (NOVOLOG) ASPART 100 UNITS/ML 10ML VIAL ONE ×3 (07:44→16:39)
[2022-10-23] MEDS: CLOPIDOGREL BISULFATE 75 MG TABLET (FP) PO SCH (09:56)
[2022-10-23] MEDS: amLODIPine BESYLATE 10 MG TABLET (FP) PO SCH (09:56)
[2022-10-23] MEDS: PRENATAL VITAMINS W/ FOLIC ACID TABLET (FP) PO SCH (09:56)
[2022-10-23] MEDS: ASPIRIN 81 MG CHEWABLE TABLETS PO SCH (09:56)
[2022-10-23] MEDS: BACITRACIN 0.9 GM PACKET TP SCH ×2 (09:56→21:16)
[2022-10-23] MEDS: MELATONIN 5 MG TABLETS PO SCH (21:16)
[2022-10-23] MEDS: BACLOFEN 10 MG TABLET (FP) PO PRN (21:16)
[2022-10-23] MEDS: THIAMINE HCL 100 MG TABLET (FP) PO SCH (21:16)
[2022-10-24] MEDS: GLIMEPIRIDE 2 MG TABLET PO SCH ×2 (06:25→16:23)
[2022-10-24] MEDS: INSULIN SLIDING SCALE (NOVOLOG) 1 VIAL SQ SCH ×4 (06:25→21:19)
[2022-10-24] MEDS ORDERED: INSULIN (NOVOLOG) ASPART 100 UNITS/ML 10ML VIAL ONE ×3 (06:29→21:40)
[2022-10-24] MEDS: amLODIPine BESYLATE 10 MG TABLET (FP) PO SCH (09:41)
[2022-10-24] MEDS: BACITRACIN 0.9 GM PACKET TP SCH ×2 (09:41→21:17)
[2022-10-24] MEDS: CLOPIDOGREL BISULFATE 75 MG TABLET (FP) PO SCH (09:41)
[2022-10-24] MEDS: PRENATAL VITAMINS W/ FOLIC ACID TABLET (FP) PO SCH (09:41)
[2022-10-24] MEDS: ASPIRIN 81 MG CHEWABLE TABLETS PO SCH (09:41)
[2022-10-24] MEDS: THIAMINE HCL 100 MG TABLET (FP) PO SCH (21:17)
[2022-10-24] MEDS: MELATONIN 5 MG TABLETS PO SCH (21:17)
[2022-10-24] MEDS: BACLOFEN 10 MG TABLET (FP) PO PRN (21:17)
[2022-10-25] MEDS: GLIMEPIRIDE 2 MG TABLET PO SCH ×2 (06:24→16:35)
[2022-10-25] MEDS: INSULIN SLIDING SCALE (NOVOLOG) 1 VIAL SQ SCH ×4 (08:19→21:17)
[2022-10-25] MEDS ORDERED: INSULIN (NOVOLOG) ASPART 100 UNITS/ML 10ML VIAL ONE ×4 (08:22→22:57)
[2022-10-25] MEDS: BACITRACIN 0.9 GM PACKET TP SCH ×2 (09:55→21:14)
[2022-10-25] MEDS: amLODIPine BESYLATE 10 MG TABLET (FP) PO SCH (09:56)
[2022-10-25] MEDS: PRENATAL VITAMINS W/ FOLIC ACID TABLET (FP) PO SCH (09:56)
[2022-10-25] MEDS: CLOPIDOGREL BISULFATE 75 MG TABLET (FP) PO SCH (09:56)
[2022-10-25] MEDS: ASPIRIN 81 MG CHEWABLE TABLETS PO SCH (09:56)
[2022-10-25] MEDS: MELATONIN 5 MG TABLETS PO SCH (21:14)
[2022-10-25] MEDS: THIAMINE HCL 100 MG TABLET (FP) PO SCH (21:14)
[2022-10-25] MEDS: ACETAMINOPHEN 325 MG TABLET (FP) PO PRN (21:15)
[2022-10-26] MEDS: INSULIN SLIDING SCALE (NOVOLOG) 1 VIAL SQ SCH ×4 (06:24→21:19)
[2022-10-26] MEDS: GLIMEPIRIDE 2 MG TABLET PO SCH ×2 (06:24→16:47)
[2022-10-26] MEDS ORDERED: INSULIN (NOVOLOG) ASPART 100 UNITS/ML 10ML VIAL ONE ×3 (06:30→21:56)
[2022-10-26] MEDS: ACETAMINOPHEN 325 MG TABLET (FP) PO PRN (10:04)
[2022-10-26] MEDS: amLODIPine BESYLATE 10 MG TABLET (FP) PO SCH (10:06)
[2022-10-26] MEDS: CLOPIDOGREL BISULFATE 75 MG TABLET (FP) PO SCH (10:06)
[2022-10-26] MEDS: ASPIRIN 81 MG CHEWABLE TABLETS PO SCH (10:06)
[2022-10-26] MEDS: PRENATAL VITAMINS W/ FOLIC ACID TABLET (FP) PO SCH (10:07)
[2022-10-26] MEDS: BACITRACIN 0.9 GM PACKET TP SCH (10:07)
[2022-10-26] MEDS ORDERED: BACITRACIN 0.9 GM PACKET TP PRN (11:16)
[2022-10-26] MEDS: BACLOFEN 10 MG TABLET (FP) PO PRN (21:20)
[2022-10-26] MEDS: MELATONIN 5 MG TABLETS PO SCH (21:20)
[2022-10-26] MEDS: THIAMINE HCL 100 MG TABLET (FP) PO SCH (21:20)
[2022-10-27] MEDS: INSULIN SLIDING SCALE (NOVOLOG) 1 VIAL SQ SCH ×4 (06:17→21:08)
[2022-10-27] MEDS: GLIMEPIRIDE 2 MG TABLET PO SCH ×2 (06:17→17:11)
[2022-10-27] MEDS: ASPIRIN 81 MG CHEWABLE TABLETS PO SCH (10:13)
[2022-10-27] MEDS: PRENATAL VITAMINS W/ FOLIC ACID TABLET (FP) PO SCH (10:14)
[2022-10-27] MEDS: amLODIPine BESYLATE 10 MG TABLET (FP) PO SCH (10:14)
[2022-10-27] MEDS: CLOPIDOGREL BISULFATE 75 MG TABLET (FP) PO SCH (10:14)
[2022-10-27] MEDS ORDERED: INSULIN (NOVOLOG) ASPART 100 UNITS/ML 10ML VIAL ONE ×2 (11:53→16:31)
[2022-10-27] MEDS: BACLOFEN 10 MG TABLET (FP) PO PRN (21:08)
[2022-10-27] MEDS: THIAMINE HCL 100 MG TABLET (FP) PO SCH (21:08)
[2022-10-27] MEDS: MELATONIN 5 MG TABLETS PO SCH (21:08)
[2022-10-28] MEDS: INSULIN SLIDING SCALE (NOVOLOG) 1 VIAL SQ SCH ×4 (06:27→21:24)
[2022-10-28] MEDS: GLIMEPIRIDE 2 MG TABLET PO SCH ×2 (06:27→16:56)
[2022-10-28] MEDS ORDERED: INSULIN (NOVOLOG) ASPART 100 UNITS/ML 10ML VIAL ONE ×2 (06:38→11:06)
[2022-10-28] MEDS: amLODIPine BESYLATE 10 MG TABLET (FP) PO SCH (10:14)
[2022-10-28] MEDS: ASPIRIN 81 MG CHEWABLE TABLETS PO SCH (10:14)
[2022-10-28] MEDS: CLOPIDOGREL BISULFATE 75 MG TABLET (FP) PO SCH (10:14)
[2022-10-28] MEDS: PRENATAL VITAMINS W/ FOLIC ACID TABLET (FP) PO SCH (10:14)
[2022-10-28] MEDS: MELATONIN 5 MG TABLETS PO SCH (21:22)
[2022-10-28] MEDS: THIAMINE HCL 100 MG TABLET (FP) PO SCH (21:22)
[2022-10-28] MEDS: BACLOFEN 10 MG TABLET (FP) PO PRN (21:22)
[2022-10-29] MEDS: GLIMEPIRIDE 2 MG TABLET PO SCH (06:12)
[2022-10-29] MEDS ORDERED: INSULIN (NOVOLOG) ASPART 100 UNITS/ML 10ML VIAL ONE (06:14)
[2022-10-29] MEDS: INSULIN SLIDING SCALE (NOVOLOG) 1 VIAL SQ SCH (06:14)
[2022-10-29 06:37] VITALS: TEMP 97.9
[2022-10-29 08:38] VITALS: BP 166/84; PULSE 97; RESP 19
[2022-10-29] MEDS: ASPIRIN 81 MG CHEWABLE TABLETS PO SCH (09:02)
[2022-10-29] MEDS: amLODIPine BESYLATE 10 MG TABLET (FP) PO SCH (09:03)
[2022-10-29] MEDS: PRENATAL VITAMINS W/ FOLIC ACID TABLET (FP) PO SCH (09:03)
[2022-10-29] MEDS: CLOPIDOGREL BISULFATE 75 MG TABLET (FP) PO SCH (09:03)
== END 2022-10-29 09:04 | disposition home or self-care (01) | DRG 772 ==
LOC: YASAS 10:01 → Y3E 12:55 → Y3W 16:03 → Y3E 16:05
PROVIDERS: ADMIT Allergy & Immunology; ATTEND Psychiatry & Neurology Pain Medicine
PROC: HZ42ZZZ Group Counseling for Substance Abuse Treatment, Cognitive-Behavioral (ICD-10-PCS; principal; 2022-10-01)
DX: F14.20 Cocaine dependence, uncomplicated (principal); F17.210 Nicotine dependence, cigarettes, uncomplicated; I48.91 Unspecified atrial fibrillation; I10 Essential (primary) hypertension; E78.5 Hyperlipidemia, unspecified; E11.65 Type 2 diabetes mellitus with hyperglycemia; Z79.84 Long term (current) use of oral hypoglycemic drugs; R07.9 Chest pain, unspecified; R29.6 Repeated falls; R76.8 Other specified abnormal immunological findings in serum; Z89.512 Acquired absence of left leg below knee; Z89.411 Acquired absence of right great toe; Z99.3 Dependence on wheelchair; Z86.19 Personal history of other infectious and parasitic diseases; Z86.73 Personal history of transient ischemic attack (TIA), and cerebral infarction without residual deficits; Z59.02 Unsheltered homelessness; Z79.02 Long term (current) use of antithrombotics/antiplatelets; Z79.82 Long term (current) use of aspirin
CPT/HCPCS: 36415; 80053; 81003; 82962; 84132; 84484; 85025; 85027; 86593; 86780; 86803; 87389; 87522; 87635; 93005; 93010; J0475